=== PATIENT | male | born 1955 | race Caucasian/White ===

== ENCOUNTER 2020-11-16 13:13 | Emergency (ER) | payer BC ==
[~2020-11-16] VITALS: Ht 177.8 cm; Wt 92.0 kg
[2020-11-16 13:13] VITALS: BP 134/76
[2020-11-16] MEDS ORDERED: DIPH,PERTUSS(ACELL),TET VAC/PF 0.5 ML SYRINGE. VAX IM ONE (13:45)
--- NOTE | 2020-11-16 14:03 | PHYS DOC ---
Adult General Chief Complaint Chief Complaint: LACERATION/AVULSION HPI HPI Patient is a 65-year-old male presents emergency department chief complaint of a laceration to his left forearm. 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 Patient states it bled a little, he put a bandage over it, states his told him it needed stitches so he presented to the ER to get stitches today. Patient denies any numbness tingling distal to the laceration, denies any loss of movement of the wrist hand or fingers. States it does not really hurt and does not consider it a 1/10 pain at this time. Patient states his last tetanus immunization was greater than 5 years ago. Patient states he is a patient of Dr. Jaylen Jacques, takes a blood pressure medication and a cholesterol medication however he does not know the names or dosages, states his does lays the pills out for him to take in the morning. Patient reports an allergy to penicillin. Patient denies any other physical complaints or physical concerns. States he is not homicidal or suicidal. Review of Systems Review of Systems 14 body systems of review of systems have been reviewed. See HPI for pertinent positives and negative responses, otherwise all other systems are negative, nonpertinent or noncontributory. Current Medications Current Medications Current Medications Medications (Trade) Dose Ordered Sig/Darcy Start Time Stop Time Status Last Admin Dose Admin Diphtheria/ Pertussis/Tetanus Vacc (ADACEL TDap SYRINGE) 0.5 ml ONCE ONCE 11/16/20 13:45 11/16/20 13:46 UNV Allergies Allergies Allergies Coded Allergies Type Severity Reaction Last Updated Verified No Known Drug Allergies 11/16/20 No Physical Exam Physical Exam Constitutional: Well developed, well nourished, no acute distress, non-toxic appearance. HENT: Normocephalic, atraumatic, bilateral external ears normal, oropharynx moist, no oral exudates, nose normal. Eyes: PERRLA, EOMI, conjunctiva normal, no discharge. Neck: Normal range of motion. Cardiovascular: No cyanosis, distal cap refill less than 2 seconds. Lungs & Thorax: Patient in no respiratory distress. Skin: Warm, dry, no erythema, no rash. See extremity note for skin laceration examination. Extremities: No tenderness, no cyanosis, no clubbing, ROM intact, no edema. Except for left forearm anterior aspect has 9 cm superficial laceration, no adipose tissue involvement, no loss of sensation around the laceration or distal to laceration, full AROM/PROM of wrist hand and fingers of the left. Distal cap refill less than 2 seconds. Satisfactory strength hand and wrist strength. No bleeding at this time. Neurologic: Alert and oriented X 3, normal motor function, normal sensory function, no focal deficits noted. Psychologic: Affect normal, judgement normal, mood normal. EKG EKG [] Radiology/Procedures Radiology/Procedures [] Heart Score C/O Chest Pain: No Risk Factors: Risk Factors: DM, Current or recent (<one month) smoker, HTN, HLP, family history of CAD, obesity. Risk Scores: Risk Factors: DM, Current or recent (<one month) smoker, HTN, HLP, family history of CAD, obesity. Course & Med Decision Making Course & Med Decision Making Pertinent Labs and Imaging studies reviewed. (See chart for details) 65-year-old male, vital signs reviewed, presents emergency department with chief complaint of laceration left forearm. Physical examination reveals superficial laceration 9 cm in length, does not extend into adipose tissue, this is not a full-thickness skin laceration, there is no tendon involvement, the patient's tetanus immunization will be brought up-to-date in the emergency department today with Adacel. ED planning, discussed Dermabond glue versus nylon sutures, the patient and I made a joint decision to scrub with chlorhexidine scrub, will bring skin edges together and Dermabond. See laceration repair note. Patient gave verbal understanding of discharge home instructions, glued skin repair instructions, follow-up with PCP soon, return to ER precautions or concerns, tetanus immunization, patient was discharged home without incident. Dragon Disclaimer Dragon Disclaimer This electronic medical record was generated, in whole or in part, using a voice recognition dictation system. Departure Departure: Impression: Primary Impression: Laceration of forearm, left Additional Impression: Need for DTaP vaccination Disposition: HOME / SELF CARE / HOMELESS Condition: GOOD Patient Instructions: Tissue Adhesive Wound Care Additional Instructions: You were seen in the emergency department today for a laceration to your left forearm, this was a minor laceration that did not require nylon sutures, we did bring the edges together and repaired with Dermabond skin glue, do not apply any ointments or lotions or oil type products to the laceration repair site until after 7 days. I have attached tissue adhesive wound care instructions to this document please review. We discussed watching for signs and symptoms of infection, there were no signs of infection today, your wound was cleansed thoroughly and vigorously with chlorhexidine wash. I do not feel that you need to be on an antibiotic at this time. Please follow-up with your primary care physician for signs and symptoms of infectious process, return to the emergency department for worsening symptoms or other concerns. Your tetanus immunization was brought up-to-date in the emergency department today with a medication called Adacel. EMERGENCY DEPARTMENT GENERAL DISCHARGE INSTRUCTIONS Thank you for coming to [facility] (ED) today and trusting us with you care. We trust that you had a positivie experience in our Emergency Department. If you wish to speak to the department management, you may call the director at [phone]. YOUR FOLLOW UP INSTRUCTIONS ARE FOLLOWS: 1. Do you have a private Doctor? If you do not have a private doctor, please ask for a resource list of physicians or clinics that may be able to assist you with follow up care. 2. The Emergency Physician has interpreted your x-rays. The X-Ray specialist will also review them. If there is a change in the findings, you will be notified in 48 hours when at all possible. 3. A lab test or culture has been done, your results will be reviewed and you will be notified if you need a change in treatment. ADDITIONAL INSTRUCTIONS AND INFORMATION: 1. Your care today has been supervised by a physician who is specially trained in emergency care. Many problems require more than one evaluation for a complete diagnosis and treatment. We recommend that you schedule your follow up appointment as recommended to ensure complete treatment of you illness or injury. If you are unable to obtain follow up care and continue to have a problem, or if your condition worsens, we recommend that you return to the ED. 2. We are not able to safely determine your condition over the phone nor are we able to give sound medical advice over the phone. For these safety reasons, if you call for medical advice we will ask you to come to the ED for further evaluation. 3. If you have any questions regarding these discharge instructions please call the ED at [phone]. SAFETY INFORMATION: In the interest of safety, wellness, and injury prevention; we encourage you to wear your sealbelt, if you smoke; quite smoking, and we encourage family to use a protective helmet for bicycling and other sporting events that present an increased risk for head injury. IF YOUR SYMPTOMS WORSEN OR NEW SYMPTOMS DEVELOP, OR YOU HAVE CONCERNS ABOUT YOUR CONDITION; OR IF YOUR CONDITION WORSENS WHILE YOU ARE WAITING FOR YOUR FOLLOW UP APPOINTMENT; EITHER CONTACT YOUR PRIMARY CARE DOCTOR, THE PHYSICIAN WHOSE NAME AND NUMBER YOU WERE GIVEN, OR RETURN TO THE ED IMMEDIATELY. Laceration Repair Lac Repair Indication: Laceration left forearm anterior surface. Procedure: The patient was placed in the appropriate position and anesthesia around the not indicated related to superficial laceration not requiring nylon sutures. The area was then vigorously with chlorhexidine scrub and rinsed with normal saline. The laceration was closed with Dermabond skin adhesive. There were no additional lacerations the wound area was then dressed with Coban. Total repaired wound length: 9 cm. Other Items: The patient's tetanus status was brought up-to-date in the emergency room today with DTaP Adacel. The patient tolerated the procedure patient tolerated procedure well. Complications: There were no complications. Problem Qualifiers Primary Impression: Laceration of forearm, left Encounter type: initial encounter Qualified Codes: S51.812A - Laceration without foreign body of left forearm, initial encounter JASON MCDONALD APRN November 16, 2020 14:03
== END 2020-11-16 14:48 | disposition home or self-care (01) ==
LOC: ER 13:13
DX: S51.812A Laceration without foreign body of left forearm, initial encounter (principal); Z23 Encounter for immunization; Z88.0 Allergy status to penicillin; W26.0XXA Contact with knife, initial encounter; Y93.89 Activity, other specified; Y92.89 Other specified places as the place of occurrence of the external cause; Y99.8 Other external cause status
CPT/HCPCS: 12004; 90471; 90715; 99283-25